=== PATIENT | female | born 1980 | race African-American/Black ===

== ENCOUNTER 2016-08-08 15:08 | Emergency (ER) | payer SELFPAY ==
[~2016-08-08] VITALS: Ht 160 cm; Wt 70.3 kg
[~2016-08-08 15:08] MED LIST: ROBA750T3 PO
[2016-08-08 15:10] VITALS: BP 131/67; PULSE 87; RESP 15; TEMP 97.9; O2SAT 99
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
[2016-08-08] MEDS ORDERED: BUSP10TA PO (16:46)
[2016-08-08] MEDS ORDERED: CELE20TA PO (16:46)
== END 2016-08-08 17:10 | disposition home or self-care (01) ==
LOC: NEPB 15:08
DX: F32.9 Major depressive disorder, single episode, unspecified (principal); F41.9 Anxiety disorder, unspecified; J45.909 Unspecified asthma, uncomplicated; M32.9 Systemic lupus erythematosus, unspecified; E11.9 Type 2 diabetes mellitus without complications; F17.210 Nicotine dependence, cigarettes, uncomplicated; Z79.899 Other long term (current) drug therapy
CPT/HCPCS: 99281

== ENCOUNTER 2017-07-23 20:46 | Emergency (ER) | payer SELFPAY ==
[~2017-07-23] VITALS: Ht 160 cm; Wt 75.0 kg
[~2017-07-23 20:46] MED LIST changes: +BUSP10TA PO; +CELE20TA PO
[2017-07-23 20:48] VITALS: BP 104/57; PULSE 80; RESP 16; TEMP 98.5; O2SAT 98
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
[2017-07-23] MEDS ORDERED: CLINDAMYCIN 900 MG/NS PREMIX 50 ML IV ONE (21:30)
[2017-07-23] MEDS ORDERED: oxyCODONE/ACETAMINOPHEN 5 MG/325 MG TAB PO ONE (21:30)
[2017-07-23] MEDS ORDERED: LIDOCAINE 1%/EPINEPHrine 1:100,000 SOLN 20 ML VIAL INFIL ONE (21:30)
[2017-07-23] MEDS ORDERED: LIDOCAINE 1%/EPINEPHrine 1:100,000 SOLN 30 ML VIAL INFIL ONE (21:45)
[2017-07-23] MEDS ORDERED: CLIN300C5 PO (21:47)
[2017-07-23] MEDS ORDERED: TYLETAB34 PO (21:47)
[2017-07-23] MEDS ORDERED: CLINDAMYCIN 150 MG CAP PO SCH (22:15)
== END 2017-07-23 22:42 | disposition home or self-care (01) ==
LOC: NEPD 20:46
DX: L02.414 Cutaneous abscess of left upper limb (principal); B95.62 Methicillin resistant Staphylococcus aureus infection as the cause of diseases classified elsewhere; J45.909 Unspecified asthma, uncomplicated; M32.9 Systemic lupus erythematosus, unspecified; F31.9 Bipolar disorder, unspecified; F41.9 Anxiety disorder, unspecified; K21.9 Gastro-esophageal reflux disease without esophagitis; F17.200 Nicotine dependence, unspecified, uncomplicated; F12.90 Cannabis use, unspecified, uncomplicated
CPT/HCPCS: 10061; 86403; 87070; 87186; 87205

== ENCOUNTER 2017-07-26 17:44 | Emergency (ER) | payer SELFPAY ==
[~2017-07-26] VITALS: Ht 160 cm; Wt 80.0 kg
[~2017-07-26 17:44] MED LIST changes: +CLIN300C5 PO; -ROBA750T3 PO; +TYLETAB34 PO
[2017-07-26 18:21] VITALS: BP 115/59; PULSE 78; RESP 15; TEMP 98.5; O2SAT 99
[2017-07-26] MEDS ORDERED: BACT800T5 PO (18:39)
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
[2017-07-26] MEDS ORDERED: SULFAMETHOXAZOLE-TRIMETHOPRIM DS 800-160 MG TAB PO ONE (18:45)
[2017-07-26] MEDS ORDERED: ACETAMINOPHEN/CODEINE 300 MG/30 MG TAB PO ONE (18:45)
== END 2017-07-26 19:11 | disposition home or self-care (01) ==
LOC: NEPK 17:44
DX: L02.414 Cutaneous abscess of left upper limb (principal); Z48.00 Encounter for change or removal of nonsurgical wound dressing; J45.909 Unspecified asthma, uncomplicated; M19.90 Unspecified osteoarthritis, unspecified site; F31.9 Bipolar disorder, unspecified; F17.210 Nicotine dependence, cigarettes, uncomplicated; Z88.8 Allergy status to other drugs, medicaments and biological substances; Z88.0 Allergy status to penicillin
CPT/HCPCS: 99281

== ENCOUNTER 2017-09-07 18:53 | Emergency (ER) | payer SELFPAY ==
[~2017-09-07] VITALS: Ht 160 cm; Wt 80.0 kg
[~2017-09-07 18:53] MED LIST changes: +BACT800T5 PO
[2017-09-07 19:05] VITALS: BP 120/76; PULSE 89; RESP 16; TEMP 99.4; O2SAT 99
[2017-09-07] MEDS ORDERED: NORC5TAB PO (19:26)
[2017-09-07] MEDS ORDERED: BACT800T5 PO (19:26)
[2017-09-07] MEDS ORDERED: ACETAMINOPHEN/HYDROcodone 325 MG/5 MG TAB PO ONE (19:30)
[2017-09-07] MEDS ORDERED: LIDOCAINE 1%/EPINEPHrine 1:100,000 SOLN 50 ML VIAL INFIL ONE (19:30)
[2017-09-07] MEDS ORDERED: SULFAMETHOXAZOLE-TRIMETHOPRIM DS 800-160 MG TAB PO ONE (19:30)
--- NOTE | 2017-09-07 19:34 | PD ---
HPI Chief Complaint: Skin Problem Time Seen by Provider: 19:16 Travel History International Travel<30 days: No Contact w/Intl Traveler<30days: No Traveled to known affect area: No History of Present Illness HPI 37-year-old black female presents emergency department with recurrent abscess. Patient states that she has had an abscess now develop on her left thigh and right forearm. She was just treated a few weeks ago for an abscess on her left forearm. She states the pain is moderate. Worse with movement. No alleviating factors. She does admit to feeling rundown and having general malaise. No fever chills. No nausea vomiting. Patient denies IV drug abuse PFSH Past Medical History Anemia: Yes Arthritis: Yes Asthma: Yes Autoimmune Disease: Yes (LUPUS) Blood Disorders: No Bipolar Disorder: Yes Anxiety: Yes Depression: Yes Diverticulitis: Yes Gastrointestinal Disorders: Yes GERD: Yes Headaches: Yes Immune Disorder: No Musculoskeletal: Yes (BACK SPASMS) Psychiatric: Yes (PTSD) Reproductive: Yes (PID) Respiratory: Yes (ASTHMA) Immunizations Current: Yes Migraines: Yes Pancreatitis: Yes Influenza Vaccination: No ?: Not Menopausal: No : 5 Para: 4 Miscarriage: 1 : 0 Ovarian Cysts: Yes Tubal Ligation: Yes Past Surgical History Appendectomy: No Section: Yes Cholecystectomy: Yes Hysterectomy: No Other Surgery: No Social History Alcohol Use: No Tobacco Use: Yes (1 ppd) Substance Use: No Allergies-Medications (Allergen,Severity, Reaction): Coded Allergies: cephalexin (Unverified Allergy, Severe, ITCHINESS, 07/26/17) penicillin G (Unverified Allergy, Severe, TONGUE SWELLING, RASH, 07/26/17) Reported Meds & Prescriptions Reported Meds & Active Scripts Active [place] (Hydrocodone-Acetaminophen) 5 Mg-325 Mg Tab 1 Tab PO Q6H PRN 2 Days Bactrim DS (Sulfamethoxazole-Trimethoprim) 800-160 Mg Tab 1 Tab PO BID Bactrim DS (Sulfamethoxazole-Trimethoprim) 800-160 Mg Tab 1 Tab PO BID Tylenol-Codeine #3 (Acetaminophen-Codeine) 300-30 mg Tab 1 Tab PO Q4H PRN Clindamycin (Clindamycin HCl) 300 Mg Cap 300 Mg PO TID 10 Days Buspirone (Buspirone HCl) 10 Mg Tab 10 Mg PO TID Celexa (Citalopram Hydrobromide) 20 Mg Tab 20 Mg PO DAILY Review of Systems Except as stated in HPI: all other systems reviewed are Neg Physical Exam Narrative GENERAL: This is a well-nourished, well-developed patient, in no apparent distress. SKIN: No rashes, ecchymoses or lesions. Warm and dry. Patient has a abscess to the left lateral thigh. It is tender, erythematous and indurated. There is some central fluctuance. It measures approximately 5 x 5 cm. She also has a area of induration to her right dorsal distal forearm. This is indurated there is no fluctuance or pointing. Patient appears to have what is felt to be track elias on both extremities. HEAD: Atraumatic. Normocephalic. EYES: PERRL, EOMI, no discharge or injection. No scleral icterus. EARS: Clear NOSE: Nasal turbinates appear normal. THROAT: Mucosa pink and moist. Airway patent. NECK: Trachea midline. supple, moves head freely. LUNGS: Clear to auscultation. CV: Regular in rhythm. ABDOMEN: Soft nontender. EXT: No clubbing cyanosis or edema. Data Data Last Documented VS Vital Signs Date Time Temp Pulse Resp B/P (MAP) Pulse Ox O2 Delivery O2 Flow Rate FiO2 09/07/17 19:05 99.4 89 16 120/76 (91) 99 Orders Orders Sulfamet-Trimeth Ds 800-160 Mg (Bactrim (09/07/17 19:30) Acetamin-Hydrocod 325-5 Mg ([place] 5-325 (09/07/17 19:30) Lidocai-Epi 1%-1:100,000 Inj (Xylocaine- (09/07/17 19:30) MDM Medical Decision Making Medical Screen Exam Complete: Yes Emergency Medical Condition: Yes Medical Record Reviewed: Yes Differential Diagnosis MDM: High Differential diagnoses: Abscess, folliculitis, cellulitis, lymphangitis, abrasion, contact dermatitis Narrative Course An incision and drainage has been performed. Patient is given Bactrim DS and [place] 5 mg p.o. Procedures Procedure Narrative I&D abscess: Left lateral thigh 11 After the risks and benefits were discussed the following procedure was performed. The skin is prepped and draped in the usual sterile fashion using Betadine. The abscess is anesthetized with 1% lidocaine with epinephrine. After adequate anesthesia, an 11 blade scalpel is used to make a 2 centimeter central incision. Perulant material is expressed. Loculations are broken up using curved Neda forceps. The wound is irrigated with normal saline. The wound is packed open using iodoform gauze. A clean dressing is applied. The patient tolerated the procedure well. There was no complications. Follow-up instructions were given to the patient. Diagnosis Primary Impression: Abscess left thigh Additional Impression: Right forearm abscess Patient Instructions: Narcotic given in the ED, General Instructions Additional Instructions: Rest. Elevation. keep clean and dry. remove the packing in two days. Daily wound care with soap, water and Neosporin. Three Advil every 6 hours. Septra DS, and Lortab. Follow-up with a primary care doctor in2-3 days. Return to the ER for any problems. Med/Other Pt SpecificInfo: Prescription(s) given Scripts Hydrocodone-Acetaminophen ([place]) 5 Mg-325 Mg Tab 1 TAB PO Q6H Y for PAIN for 2 Days, #8 TAB 0 Refills Prov: Manny Holden MD 09/07/17 Sulfamethoxazole-Trimethoprim (Bactrim DS) 800-160 Mg Tab 1 TAB PO BID for Infection, #20 TAB 0 Refills Prov: Manny Holden MD 09/07/17 Disposition: 01 DISCHARGE HOME Condition: Juan Salcedo Sep 07, 2017 19:33
== END 2017-09-07 22:59 | disposition home or self-care (01) ==
LOC: NEPD 18:53
DX: L02.416 Cutaneous abscess of left lower limb (principal); L02.413 Cutaneous abscess of right upper limb
CPT/HCPCS: 10061

== ENCOUNTER 2017-09-23 19:37 | Emergency (ER) | payer SELFPAY ==
[~2017-09-23] VITALS: Ht 160 cm; Wt 80.5 kg
[~2017-09-23 19:37] MED LIST changes: +NORC5TAB PO
[2017-09-23 19:40] VITALS: BP 122/56; PULSE 70; RESP 18; TEMP 98.2; O2SAT 99
[2017-09-23] MEDS ORDERED: ACETAMINOPHEN 325 MG TAB PO ONE (20:15)
[2017-09-23] MEDS ORDERED: KETOROLAC TROMETHAMINE 60 MG/2 ML (IM) VIAL IM ONE (20:15)
[2017-09-23] MEDS ORDERED: LEVOFLOXACIN 500 MG TAB PO ONE (20:15)
[2017-09-23 21:21] LABS: AUTOMATED NEUTROPHIL # 4.4 TH/MM3 (1.8-7.7); BASOPHIL % 0.7 % (0.0-2.0); EOSINOPHIL # 0.2 TH/MM3 (0-0.4); EOSINOPHIL % 2.1 % (0.0-4.0); HEMATOCRIT 33.3 % (35.0-46.0); HEMOGLOBIN 10.9 GM/DL (11.6-15.3); LYMPH % 27.3 % (9.0-44.0); LYMPHOCYTE # 1.9 TH/MM3 (1.0-4.8); MEAN CELL VOLUME 86.4 FL (80.0-100.0); MEAN CORPUSCULAR HEMOGLOBIN 28.3 PG (27.0-34.0); MEAN CORPUSCULAR HGB CONC 32.7 % (32.0-36.0); MEAN PLATELET VOLUME 7.4 FL (7.0-11.0); MONO % 8.2 % (0.0-8.0); MONOCYTE # 0.6 TH/MM3 (0-0.9); NEUT % 61.7 % (16.0-70.0); PLATELET COUNT 310 TH/MM3 (150-450); RED BLOOD COUNT 3.86 MIL/MM3 (4.00-5.30); RED CELL DISTRIBUTION WIDTH 14.4 % (11.6-17.2); WHITE BLOOD COUNT 7.1 TH/MM3 (4.0-11.0)
[2017-09-23 21:42] LABS: BICARBONATE 25.7 MEQ/L (21.0-32.0); CALCIUM 8.4 MG/DL (8.5-10.1); CREATININE 0.93 MG/DL (0.50-1.00)
--- NOTE | 2017-09-23 22:13 | PD ---
HPI Chief Complaint: Skin Problem Time Seen by Provider: 19:50 Travel History International Travel<30 days: No Contact w/Intl Traveler<30days: No Traveled to known affect area: No History of Present Illness HPI 37-year-old female presents emergency department for evaluation of an abscess status post I&D that was performed August 30. In addition states that she developed hives and a fever last night for an unknown reason. States her fever was up to 102.1 and decreased to 100.1 after taking NyQuil last night. Patient says that she was able to go to sleep without any issues and woke up this morning with most of the hives gone. At that time, she denied any chest pain or shortness of breath. Says she was concerned because she has an allergy to mosquito bites. She is complaining of left thigh pain that has been increasing over the last couple days. She states compliance with her medications that were given September 07 which included Bactrim and a pain medication. She has not taken any medications today for her fever. She currently denies any fevers, chills, chest pain, shortness of breath, abdominal pain. She has a history of asthma, lupus, bipolar, PTSD, anxiety. PFSH Past Medical History Alzheimer's Disease: Yes Anemia: Yes Arthritis: Yes Asthma: Yes Autoimmune Disease: Yes (LUPUS) Blood Disorders: No Bipolar Disorder: Yes Anxiety: Yes Depression: Yes Diminished Hearing: No Diverticulitis: Yes Endocrine: Yes Gastrointestinal Disorders: Yes GERD: Yes Headaches: Yes Immune Disorder: No Musculoskeletal: Yes (BACK SPASMS) Neurologic: Yes (P.T.S.D.) Psychiatric: Yes (PTSD) Reproductive: Yes (PID) Respiratory: Yes (ASTHMA) Immunizations Current: Yes Migraines: Yes Pancreatitis: Yes Tetanus Vaccination: < 5 Years Influenza Vaccination: No ?: Not LMP: 09/20/2017 Menopausal: No : 5 Para: 4 Miscarriage: 1 : 0 Ovarian Cysts: Yes Tubal Ligation: Yes Past Surgical History Appendectomy: No Body Medical Devices: PTSD Section: Yes Cholecystectomy: Yes Hysterectomy: No Other Surgery: No Social History Alcohol Use: No Tobacco Use: Yes (1 ppd) Substance Use: No Allergies-Medications (Allergen,Severity, Reaction): Coded Allergies: cephalexin (Unverified Allergy, Severe, ITCHINESS, 09/23/17) penicillin G (Unverified Allergy, Severe, TONGUE SWELLING, RASH, 09/23/17) Reported Meds & Prescriptions Reported Meds & Active Scripts Active Hydrocodone-Acetaminophen 5-325 mg Tab 1 Tab PO Q6H PRN 3 Days Cipro (Ciprofloxacin HCl) 500 Mg Tab 500 Mg PO BID 7 Days Doxycycline Hyclate 100 Mg Cap 100 Mg PO BID 7 Days Jelm (Hydrocodone-Acetaminophen) 5 Mg-325 Mg Tab 1 Tab PO Q6H PRN 2 Days Bactrim DS (Sulfamethoxazole-Trimethoprim) 800-160 Mg Tab 1 Tab PO BID Bactrim DS (Sulfamethoxazole-Trimethoprim) 800-160 Mg Tab 1 Tab PO BID Tylenol-Codeine #3 (Acetaminophen-Codeine) 300-30 mg Tab 1 Tab PO Q4H PRN Clindamycin (Clindamycin HCl) 300 Mg Cap 300 Mg PO TID 10 Days Buspirone (Buspirone HCl) 10 Mg Tab 10 Mg PO TID Celexa (Citalopram Hydrobromide) 20 Mg Tab 20 Mg PO DAILY Review of Systems Except as stated in HPI: all other systems reviewed are Neg Physical Exam Narrative GENERAL: Well-developed, well-nourished mildly anxious SKIN: Focused skin assessment warm/dry. Left thigh-mid lateral aspect with a wound 2.5 cm x 1 cm ulcerated wound with scant exudate. Bleeding controlled. Appears that there is cream surrounding the area, consistent with patient's application of hydrocortisone HEAD: Atraumatic. Normocephalic. EYES: Pupils equal and round. No scleral icterus. No injection or drainage. ENT: No nasal bleeding or discharge. Mucous membranes pink and moist. NECK: Trachea midline. No JVD. CARDIOVASCULAR: Regular rate and rhythm. No murmur appreciated. RESPIRATORY: No accessory muscle use. Clear to auscultation. Breath sounds equal bilaterally. GASTROINTESTINAL: Abdomen soft, non-tender, nondistended. Hepatic and splenic margins not palpable. MUSCULOSKELETAL: No obvious deformities. No clubbing. No cyanosis. No edema. NEUROLOGICAL: Awake and alert. No obvious cranial nerve deficits. Motor grossly within normal limits. Normal speech. PSYCHIATRIC: Appropriate mood and affect; insight and judgment normal. Data Data Last Documented VS Vital Signs Date Time Temp Pulse Resp B/P (MAP) Pulse Ox O2 Delivery O2 Flow Rate FiO2 09/23/17 19:40 98.2 70 18 122/56 (78) 99 Orders Orders Basic Metabolic Panel (Bmp) (09/23/17 20:11) Complete Blood Count With Diff (09/23/17 20:11) Wound Culture And Gram Stain (09/23/17 20:11) Acetaminophen (Tylenol) (09/23/17 20:15) Ketorolac Inj (Toradol Inj) (09/23/17 20:15) Levofloxacin (Levaquin) (09/23/17 20:15) Acetamin-Hydrocod 325-5 Mg (Jelm 5-325 (09/23/17 22:45) Mandatory Outpatient Referral (09/23/17 22:45) Ed Discharge Order (09/23/17 22:48) Wound Care (09/23/17 22:53) Labs Laboratory Tests Test 09/23/17 21:03 White Blood Count 7.1 TH/MM3 Red Blood Count 3.86 MIL/MM3 Hemoglobin 10.9 GM/DL Hematocrit 33.3 % Mean Corpuscular Volume 86.4 FL Mean Corpuscular Hemoglobin 28.3 PG Mean Corpuscular Hemoglobin Concent 32.7 % Red Cell Distribution Width 14.4 % Platelet Count 310 TH/MM3 Mean Platelet Volume 7.4 FL Neutrophils (%) (Auto) 61.7 % Lymphocytes (%) (Auto) 27.3 % Monocytes (%) (Auto) 8.2 % Eosinophils (%) (Auto) 2.1 % Basophils (%) (Auto) 0.7 % Neutrophils # (Auto) 4.4 TH/MM3 Lymphocytes # (Auto) 1.9 TH/MM3 Monocytes # (Auto) 0.6 TH/MM3 Eosinophils # (Auto) 0.2 TH/MM3 Basophils # (Auto) 0.0 TH/MM3 CBC Comment DIFF FINAL Differential Comment Blood Urea Nitrogen 6 MG/DL Creatinine 0.93 MG/DL Random Glucose 79 MG/DL Calcium Level 8.4 MG/DL Sodium Level 142 MEQ/L Potassium Level 3.6 MEQ/L Chloride Level 109 MEQ/L Carbon Dioxide Level 25.7 MEQ/L Anion Gap 7 MEQ/L Estimat Glomerular Filtration Rate 83 ML/MIN MDM Medical Decision Making Medical Screen Exam Complete: Yes Emergency Medical Condition: Yes Differential Diagnosis Cellulitis, erysipelas, wound care Narrative Course 37-year-old female presents emergency department for evaluation of an abscess status post I&D that was performed August 30. In addition states that she developed hives and a fever last night for an unknown reason. States her fever was up to 102.1 and decreased to 100.1 after taking NyQuil last night. Patient says that she was able to go to sleep without any issues and woke up this morning with most of the hives gone. At that time, she denied any chest pain or shortness of breath. Says she was concerned because she has an allergy to mosquito bites. She is complaining of left thigh pain that has been increasing over the last couple days. She states compliance with her medications that were given September 07 which included Bactrim and a pain medication. She has not taken any medications today for her fever. She currently denies any fevers, chills, chest pain, shortness of breath, abdominal pain. She has a history of asthma, lupus, bipolar, PTSD, anxiety. Vital signs are stable. Temperature 98.2. Heart rate 70. Blood pressure 122/ 56. Physical exam findings demonstrate an ulcerated lesion to the left lateral thigh , not exudate. Surrounding induration. CBC & BMP Diagram 09/23/17 21:03 Calcium Level 8.4 L Toradol, Tylenol, Levaquin administered. Note that the previous wound culture was susceptible to Levaquin. Levaquin 500mg administered. Hydrocodone administered for pain. After speaking with my supervising physician, Dr. Cruz, and he recommended Cipro and doxycycline for treatment of her wound. Should be discharged with ciprofloxacin and doxycycline. Advised to use Motrin and Tylenol for pain relief. Hydrocodone for pain. Place an order for mandatory referral for wound care. Diagnosis Primary Impression: Ulcer of lower extremity Qualified Codes: L97.921 - Non-pressure chronic ulcer of unspecified part of left lower leg limited to breakdown of skin Referrals: [facility] Primary Care Physician Additional Instructions: Follow up with your primary care physician within 2-3 days. Keep area clean and dry. You may bathe as normal but dry the area thoroughly. You may use [id number] triple antibiotic ointments for your injury daily. Change dressings daily. If bleeding starts, apply pressure and elevate the area. If you developed increased redness, swelling, or pain return to the emergency department as this could be a sign of infection. Scripts Hydrocodone-Acetaminophen (Hydrocodone-Acetaminophen) 5-325 mg Tab 1 TAB PO Q6H Y for PAIN for 3 Days, #12 TAB 0 Refills Prov: Song Cruz MD 09/23/17 Ciprofloxacin (Cipro) 500 Mg Tab 500 MG PO BID for Infection for 7 Days, #14 TAB 0 Refills Prov: Song Cruz MD 09/23/17 Doxycycline Hyclate (Doxycycline Hyclate) 100 Mg Cap 100 MG PO BID for Infection for 7 Days, #14 CAP 0 Refills Prov: Song Cruz MD 09/23/17 Disposition: 01 DISCHARGE HOME Condition: Stable Hali Dailey Sep 23, 2017 22:13
[2017-09-23] MEDS ORDERED: ACETAMINOPHEN/HYDROcodone 325 MG/5 MG TAB PO ONE (22:45)
[2017-09-23] MEDS ORDERED: HYDR-3516 PO (22:47)
[2017-09-23] MEDS ORDERED: DOXY100C PO (22:47)
[2017-09-23] MEDS ORDERED: CIPR-9 PO (22:47)
== END 2017-09-23 23:14 | disposition home or self-care (01) ==
LOC: NEPC 19:37
DX: L97.921 Non-pressure chronic ulcer of unspecified part of left lower leg limited to breakdown of skin (principal); M32.9 Systemic lupus erythematosus, unspecified; F17.200 Nicotine dependence, unspecified, uncomplicated; M79.652 Pain in left thigh
CPT/HCPCS: 80048; 85025; 86403; 87070; 87077; 87186; 96372; 99283; J1885; 87205